=== PATIENT | male | born 1995 | race Caucasian/White ===

== ENCOUNTER 2022-01-13 00:41 | Emergency (ER) | payer MEDICAID ==
[~2022-01-13] VITALS: Ht 182.9 cm; Wt 100.0 kg
[2022-01-13] MEDS ORDERED: DexAMETHasone SOD PHOS 10MG/1ML VIAL INJ IM ONE (01:30)
[2022-01-13] MEDS ORDERED: FAMOTIDINE 20 MG TAB PO ONE (01:30)
[2022-01-13 03:55] VITALS: BP 123/68
== END 2022-01-13 03:56 | disposition home or self-care (01) ==
LOC: ER 00:41
DX: L23.9 Allergic contact dermatitis, unspecified cause (principal)
CPT/HCPCS: 96372; 99283; J1100